=== PATIENT | female | born 1980 | race African-American/Black ===

== ENCOUNTER 2018-03-07 11:11 | Emergency (ER) | payer BC ==
[~2018-03-07] VITALS: Ht 167.6 cm; Wt 90.0 kg
[2018-03-07] MEDS ORDERED: NEOMYCIN-POLYMY10 ML RIGHT EAR (11:26)
[2018-03-07 11:51] VITALS: BP 130/86
== END 2018-03-07 11:51 | disposition home or self-care (01) ==
LOC: EME 11:11
DX: H92.01 Otalgia, right ear (principal); Z88.6 Allergy status to analgesic agent
CPT/HCPCS: 99281; 99283